=== PATIENT | male | born 1990 | race Caucasian/White ===

== ENCOUNTER 2016-12-25 14:32 | Emergency (ER) | payer OTHER ==
[~2016-12-25] VITALS: Ht 177.8 cm; Wt 87.0 kg
[2016-12-25 14:36] VITALS: Ht 177.8 cm; Wt 87.0 kg
[2016-12-25] MEDS ORDERED: IBUPROFEN 800 MG TAB PO ONE (15:30)
[2016-12-25] MEDS ORDERED: ACETAMINOPHEN 325 MG TAB PO ONE (15:30)
--- NOTE | 2016-12-25 15:51 | RADRPT ---
PROCEDURE: XR Chest AP portable CLINICAL INDICATION: Cough TECHNIQUE: An AP portable radiograph of the chest was submitted. COMPARISON: None. FINDINGS: Support Hardware: None Cardiovascular: The cardiovascular silhouette appears unremarkable. Lung Barnes: The lung barnes appear clear with no nodule, alveolar infiltrate, or interstitial promi nence evident. Pleural Spaces: No pneumothorax or pleural effusion is identified. Osseous Structures: The osseous structures appear intact. Soft Tissues: The soft tissues appear unremarkable. IMPRESSION: Unremarkable portable chest. Physician Queenie Date Time Electronically viewed and signed by Davis Connelly Physician on 12/25/2016 15:51 /
[2016-12-25] MEDS ORDERED: ACET500C5 PO (16:25)
[2016-12-25] MEDS ORDERED: IBUP800T25 PO (16:25)
[2016-12-25] MEDS ORDERED: AMOX1TAB10 PO (16:25)
--- NOTE | 2016-12-25 17:34 | ERD ---
ER Documentation Chief Complaint Date/Time DATE: 12/25/16 TIME: 17:27 Chief Complaint r ear pain for past few days HPI 26-year-old male patient with no significant past medical history presents to the ED complaining of right ear pain that started 3 days ago. States that he has had a cough for 1 month. Denies any chest pain, wheezing, shortness of breath, ear trauma, abdominal pain, nausea, vomiting, diarrhea. Patient denies any sick contacts. States that he has tried taking Sudafed without relief. Reports that he is trying to blow his nose because he had a muffled hearing in the right ear. States that he has slight ringing in the ears. Denies any complete hearing loss. Denies any headache, weakness. ROS All systems reviewed and are negative except as per history of present illness. Medications Home Meds Active Scripts Acetaminophen* (Tylophen*) 500 Mg Capsule, 1 CAP PO Q6H Y for PAIN AND OR ELEVATED TEMP, #20 CAP Prov:CANDACE HERMAN PA-C 12/25/16 Ibuprofen* (Motrin*) 800 Mg Tab, 800 MG PO Q6, #30 TAB Prov:CANDACE HERMAN PA-C 12/25/16 Amoxicillin/Potassium Clav (Amox-Clav 875-125 mg Tablet) 875-125 mg Tab, 1 TAB PO BID for 10 Days, #20 TAB Prov:CANDACE HERMAN PA-C 12/25/16 Allergies Allergies: Coded Allergies: No Known Allergy (Unverified , 12/25/16) PMhx/Soc Medical and Surgical Hx: pt denies Medical Hx, pt denies Surgical Hx Hx Alcohol Use: Yes (OCCASIONALLY) Hx Substance Use: No Hx Tobacco Use: No (QUIT 2016) Smoking Status: Former smoker Physical Exam Vitals Vital Signs Date Time Temp Pulse Resp B/P Pulse Ox O2 Delivery O2 Flow Rate FiO2 12/25/16 14:36 101.4 91 18 137/61 98 Physical Exam Const: Xrx-pom-lfmkcujiy, well-nourished. In no acute distress. Head: Atraumatic, normocephalic Eyes: Normal Conjunctiva without injection. No purulent discharge. PERRLA. EOMI ENT: Normal external ear. No tenderness palpation of the mastoid or tragus. Left ear canal without erythema. Left tympanic membrane pearly singh without effusion or bulging. Right bulging tympanic membrane with slight partial tympanic membrane rupture with slight blood. Nasal canal clear with normal turbinates. Moist oropharynx without tonsillar exudates. Non-erythematous pharynx. Uvula midline. No drooling. No trismus. Neck: No cervical midline tenderness. Full range of motion. No meningismus. No cervical lymphadenopathy. No JVD. Resp: Clear to auscultation bilaterally. No wheezing, rhonchi, rales, or crackles. No accessory muscle use. No retractions. Cardio: Regular rate and rhythm. No murmurs, rubs or gallops. Abd: Soft, non tender, non distended. Normal bowel sounds. No palpable masses. No rebound tenderness. No guarding. Negative McBurney's Point. Negative Hwang's Sign. Skin: Normal skin turgor. No petechiae or rashes Back: No midline tenderness. No CVA tenderness. Ext: No cyanosis, or edema. Distal pulses intact bilaterally. Neur: Awake and alert. Normal gait. Normal coordination. Cranial Nerves II- VII intact. Normal finger to nose. Muscle strength 5/5. Sensation intact. Psych: Normal Mood and Affect Results 24 hrs Current Medications Medications (Trade) Dose Ordered Sig/Paul Route PRN Reason Start Time Stop Time Status Last Admin Dose Admin Ibuprofen (Motrin) 800 mg ONCE ONCE PO 12/25/16 15:30 12/25/16 15:31 DC 12/25/16 15:10 Acetaminophen (Tylenol Tab) 650 mg ONCE ONCE PO 12/25/16 15:30 12/25/16 15:31 DC 12/25/16 15:10 Procedures/MDM This is a 26-year-old male patient with no significant past medical history presents to the ED complaining of right ear pain that started 3 days ago. Reports that he has had a cough for 1 month. Patient currently has a fever of 101.1. Ibuprofen and Tylenol was ordered to further downtrend patient's temperature. Patient's physical exam is consistent with otitis media with slight partial tympanic membrane. Patient does not have tenderness to palpation of tragus or mastoid. Low suspicion for otitis externa or mastoiditis. Patient' s physical exam include lungs which were clear to auscultation and a normal pulse oximetry. Patient is speaking in full sentences. There is a low suspicion for pneumonia, epiglottitis, croup, viral/strep pharyngitis, sinusitis, peritonsillar abscess, retropharyngeal abscess, meningitis, sepsis, acute abdomen or other emergent conditions. Discharge medications: Ibuprofen, Tylenol, Augmentin Follow up with primary care physician in 1-2 days. Instructed patient to return to the ED sooner for any worsening symptoms. Patient's questions were answered. Patient understood and agreed with discharge plan. Patient discharged stable. Departure Diagnosis: Primary Impression: Right ear pain Condition: Stable Patient Instructions: Eardrum Rupture (Perforation), Otitis Media, Abx Tx ( Adult) Referrals: TYSON ANDINO MD, URSULA LEVIN,RANDI SEPULVEDA,[facility],MAXWELL GUERRIER,SHARON LAL,[facility] PETERSON,HALLIE STRONG,CHAITANYA WARNER,[facility] YOU HAVE RECEIVED A MEDICAL SCREENING EXAM AND THE RESULTS INDICATE THAT YOU DO NOT HAVE A CONDITION THAT REQUIRES URGENT TREATMENT IN THE EMERGENCY DEPARTMENT. FURTHER EVALUATION AND TREATMENT OF YOUR CONDITION CAN WAIT UNTIL YOU ARE SEEN IN YOUR DOCTORS OFFICE WITHIN THE NEXT 1-2 DAYS. IT IS YOUR RESPONSIBILITY TO MAKE AN APPOINTMENT FOR FOLOW-UP CARE. IF YOU HAVE A PRIMARY DOCTOR --you should call your primary doctor and schedule an appointment IF YOU DO NOT HAVE A PRIMARY DOCTOR YOU CAN CALL OUR PHYSICIAN REFERRAL HOTLINE AT IF YOU CAN NOT AFFORD TO SEE A PHYSICIAN YOU CAN CHOSE FROM THE FOLLOWING [facility] [address] [facility]. [facility] [address] [facility]. [facility] [address] [facility]. [facility] [address] [facility]. [facility] [address] [facility]. [facility] [address] [facility] YOU HAVE RECEIVED A MEDICAL SCREENING EXAM AND THE RESULTS INDICATE THAT YOU DO NOT HAVE A CONDITION THAT REQUIRES URGENT TREATMENT IN THE EMERGENCY DEPARTMENT. FURTHER EVALUATION AND TREATMENT OF YOUR CONDITION CAN WAIT UNTIL YOU ARE SEEN IN YOUR DOCTORS OFFICE WITHIN THE NEXT 1-2 DAYS. IT IS YOUR RESPONSIBILITY TO MAKE AN APPOINTMENT FOR FOLOW-UP CARE. IF YOU HAVE A PRIMARY DOCTOR --you should call your primary doctor and schedule and appointment IF YOU DO NOT HAVE A PRIMARY DOCTOR YOU CAN CALL OUR PHYSICIAN REFERRAL HOTLINE AT . IF YOU CAN NOT AFFORD TO SEE A PHYSICIAN YOU CAN CHOSE FROM THE FOLLOWING [facility] INSTITUTIONS: [facility] [address] [place] [address] [facility] [address] [place] [address] [facility] + [facility] [address] [place] [address] [facility] URGENT CARE/SPECIALTIES Additional Instructions: Call your primary care doctor TOMORROW for an appointment during the next 1-2 days for a referral to ears nose throat specialist.See the doctor sooner or return here if your condition worsens before your appointment time. CANDACE HERMAN PA-C December 25, 2016 17:34
== END 2016-12-25 16:32 | disposition home or self-care (01) ==
LOC: FTE 14:32
DX: H92.01 Otalgia, right ear (principal); R05 Cough; Z87.891 Personal history of nicotine dependence
CPT/HCPCS: 71010